=== PATIENT | female | born 1940 | race African-American/Black ===

== ENCOUNTER → 2016-11-22 | Outpatient (CLI) | payer MEDICARE ==
[2016-11-22 11:06] LABS: ABSOLUTE EOSINOPHILS # (AUTO) 0.1 10^3/uL (0.0-0.6); ABSOLUTE LYMPHOCYTES (AUTO) 1.5 10^3/uL (0.5-4.7); ABSOLUTE MONOCYTES (AUTO) 0.5 10^3/uL (0.1-1.4); ABSOLUTE NEUT (AUTO) 2.8 10^3/uL (1.7-8.2); BASOPHILS % (AUTO) 0.4 % (0-2); EOSINOPHILS % (AUTO) 1.2 % (0-6); HEMATOCRIT 36.7 % (36.0-47.0); HEMOGLOBIN 12.3 g/dL (12.0-15.5); HGB HCT DIFFERENCE 0.2; LYMPHOCYTES % (AUTO) 31.3 % (13-45); MEAN CORPUSCULAR HGB CONC 33.6 g/dL (32.0-36.0); MEAN CORPUSCULAR VOLUME 95 fl (80-97); MONOCYTES % (AUTO) 10.8 % (3-13); RED BLOOD COUNT 3.85 10^6/uL (3.72-5.28); RED CELL DISTRIBUTION WIDTH 14.6 % (11.5-14.0); SEGMENTED NEUTROPHILS % (AUTO) 56.3 % (42-78); WHITE BLOOD COUNT 4.9 10^3/uL (4.0-10.5)
[2016-11-22 11:26] LABS: ALANINE AMINOTRANSFERASE 28 U/L (9-52); ALBUMIN 4.2 g/dL (3.5-5.0); ALKALINE PHOSPHATASE 50 U/L (38-126); ANION GAP 12 (5-19); ASPARTATE AMINO TRANSFERASE 31 U/L (14-36); BILIRUBIN,DIRECT 0.1 mg/dL (0.0-0.4); BILIRUBIN,TOTAL 0.7 mg/dL (0.2-1.3); BLOOD UREA NITROGEN 13 mg/dL (7-20); CALCIUM 10.1 mg/dL (8.4-10.2); CARBON DIOXIDE 30 mmol/L (22-30); CHLORIDE 105 mmol/L (98-107); CHOLESTEROL 160.65 mg/dL (0-200); CREATININE RESULT 0.85 mg/dL (0.52-1.25); Direct HDL 53 mg/dL (>40); GLUCOSE 111 mg/dL (75-110); POTASSIUM 4.5 mmol/L (3.6-5.0); SODIUM 146.5 mmol/L (137-145); TOTAL PROTEIN 7.2 g/dL (6.3-8.2); TRIGLYCERIDES 72 mg/dL (<150)
[2016-11-22 11:37] LABS: DIRECT LDL 70 mg/dL (<100)
== END ==
LOC: OD 10:17
PROVIDERS: ATTEND Internal Medicine
DX: I10 Essential (primary) hypertension (principal); E78.5 Hyperlipidemia, unspecified; R53.82 Chronic fatigue, unspecified
CPT/HCPCS: 36415; 80053; 80061; 83735; 84443; 85025

== ENCOUNTER → 2016-11-30 | Outpatient (CLI) | payer MEDICARE | LOC: RAD 15:28 | PROVIDERS: ATTEND Internal Medicine | DX: D32.9 Benign neoplasm of meninges, unspecified (principal) | CPT/HCPCS: 70553; A9577 ==

== ENCOUNTER → 2016-12-08 | Outpatient (CLI) | payer MEDICARE | LOC: RAD 15:34 | PROVIDERS: ATTEND Internal Medicine | DX: R93.0 Abnormal findings on diagnostic imaging of skull and head, not elsewhere classified (principal) | CPT/HCPCS: 70544 ==

== ENCOUNTER 2017-05-02 13:05 | Emergency (ER) | payer MEDICARE ==
[2017-05-02] MEDS ORDERED: ASPIRIN 81 MG TABLET, CHEWABLE PO ONE (13:51)
--- NOTE | 2017-05-02 13:56 | ER Document Report ---
ED Medical Screen (RME) - General Chief Complaint: Chest Pain > 30 Stated Complaint: CHEST PAIN Time Seen by Provider: 05/02/17 13:51 Mode of Arrival: Wheelchair Information source: Patient Notes: 77 yr old female presents with complaints of chest tightness around the left to the right breast of 2-3 week duraiton with sob. I have greeted and performed a rapid initial assessment of this patient. A comprehensive ED assessment and evaluation of the patient, analysis of test results and completion of the medical decision making process will be conducted by additional ED providers. PHYSICAL EXAMINATION: GENERAL: Well-appearing, well-nourished and in no acute distress. HEAD: Atraumatic, normocephalic. EYES: Pupils equal round extraocular movements intact, conjunctiva are normal. ENT: Nares patent NECK: Normal range of motion LUNGS: No respiratory distress Musculoskeletal: Normal range of motion NEUROLOGICAL: Normal speech, normal gait. PSYCH: Normal mood, normal affect. SKIN: Warm, Dry, normal turgor, no rashes or lesions noted. TRAVEL OUTSIDE OF THE [place] IN LAST 30 DAYS: No - Related Data Allergies/Adverse Reactions: No Known Allergies Allergy (Verified 05/02/17 13:22) Past Medical History - Past Medical History Cardiac Medical History: Reports: Hx Hypertension Renal/ Medical History: Denies: Hx Peritoneal Dialysis Past Surgical History: Reports: Hx Hysterectomy, Hx Orthopedic Surgery - Right hip replacement. Left carpal tunnel surgery, Hx Tubal Ligation Physical Exam - Vital signs Vitals: Temp Pulse Resp BP Pulse Ox 98.6 F 95 18 155/90 H 97 05/02/17 13:25 05/02/17 13:25 05/02/17 13:25 05/02/17 13:25 05/02/17 13:25 Course - Vital Signs Vital signs: Temp Pulse Resp BP Pulse Ox 98.6 F 95 18 155/90 H 97 05/02/17 13:25 05/02/17 13:25 05/02/17 13:25 05/02/17 13:25 05/02/17 13:25
[2017-05-02] MEDS ORDERED: NITROGLYCERIN 2% OINTMENT 1 GM PACKET TP ONE (14:34)
--- NOTE | 2017-05-02 14:50 | ER Document Report ---
ED General - General Chief Complaint: Chest Pain > 30 Stated Complaint: CHEST PAIN Time Seen by Provider: 05/02/17 13:51 Mode of Arrival: Wheelchair TRAVEL OUTSIDE OF THE [place] IN LAST 30 DAYS: No - HPI Patient complains to provider of: Chest pain Notes: Patient coming in today for evaluation of chest pain. Patient states chest pain ongoing for approximately last 1-2 weeks left side goes to the right side of her chest patient states achy increases with movement and palpation however worse this morning. Pain is located underneath the left breast patient said coming to the ER for further evaluation. 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 Patient denies any fevers chills nausea vomiting cough denies any trauma recent travel. Patient denies any shortness of breath. Upon my evaluation patient is resting comfortably. Patient is currently on multiple antihypertensives - Related Data Allergies/Adverse Reactions: No Known Allergies Allergy (Verified 05/02/17 13:22) Past Medical History - General Information source: Patient - Social History Smoking Status: Never Smoker Frequency of alcohol use: None Drug Abuse: None Family History: Reviewed & Not Pertinent Patient has suicidal ideation: No - Past Medical History Cardiac Medical History: Reports: Hx Hypertension Renal/ Medical History: Denies: Hx Peritoneal Dialysis Past Surgical History: Reports: Hx Hysterectomy, Hx Orthopedic Surgery - Right hip replacement. Left carpal tunnel surgery, Hx Tubal Ligation Review of Systems - Review of Systems Constitutional: No symptoms reported EENT: No symptoms reported Cardiovascular: Chest pain Respiratory: No symptoms reported Gastrointestinal: No symptoms reported Genitourinary: No symptoms reported Female Genitourinary: No symptoms reported Musculoskeletal: No symptoms reported Skin: No symptoms reported Hematologic/Lymphatic: No symptoms reported Neurological/Psychological: No symptoms reported -: Yes All other systems reviewed and negative Physical Exam - Vital signs Vitals: Temp Pulse Resp BP Pulse Ox 98.6 F 95 18 155/90 H 97 05/02/17 13:25 05/02/17 13:25 05/02/17 13:25 05/02/17 13:25 05/02/17 13:25 Interpretation: Normal - General General appearance: Appears well, Alert - HEENT Head: Normocephalic, Atraumatic Eyes: Normal Pupils: PERRL - Respiratory Respiratory status: No respiratory distress Chest status: Tender - Tenderness to palpation of the lower ribs underneath the left breast. Breath sounds: Normal Chest palpation: Normal - Cardiovascular Rhythm: Regular Heart sounds: Normal auscultation Murmur: No - Abdominal Inspection: Normal Distension: No distension Bowel sounds: Normal Tenderness: Nontender Organomegaly: No organomegaly - Back Back: Normal, Nontender - Extremities General upper extremity: Normal inspection, Nontender, Normal color, Normal ROM , Normal temperature General lower extremity: Normal inspection, Nontender, Normal color, Normal ROM , Normal temperature, Normal weight bearing. No: Paddy's sign - Neurological Neuro grossly intact: Yes Cognition: Normal Orientation: AAOx4 Gurvinder Coma Scale Eye Opening: Spontaneous Gurvinder Coma Scale Verbal: Oriented [place] Coma Scale Motor: Obeys Commands Gurvinder Coma Scale Total: 15 Speech: Normal Motor strength normal: LUE, RUE, LLE, RLE Sensory: Normal - Psychological Associated symptoms: Normal affect, Normal mood - Skin Skin Temperature: Warm Skin Moisture: Dry Skin Color: Normal Course - Re-evaluation Re-evalutation: 05/02/17 14:49 Quick review of the patient's past medical history does show a history of AVN. EKG at this time does show signs of an atypical left bundle branch block by the computer more looks like a ventricular conduction delay QRS widening. Which is new for the patient. Last EKG that we have this in 2013. Patient at this time has atypical symptoms with reproducible pain to palpation. And concerned because of EKG changes will contact her PCP obtain lab work at this time do not think any further anticoagulation is going to be needed other than aspirin due to the patient's history of intracranial AVM 05/02/17 14:50 05/02/17 16:[address] Doherty which patient's PCP states last EKG did show ventricular conduction delay. Patient had a negative stress test in 2012 also discussed patient's case with Dr. Mena all physicians including myself were in agreement that after 2 negative troponins with longevity of pain and the typical characteristics no relief with nitro no relief with GI cocktail more likely more muscle skeletal to negative troponins will discharge home to follow- up with cardiology in the morning. 05/02/17 19:02 Second troponin returned negative will discharge home - Vital Signs Vital signs: Temp Pulse Resp BP Pulse Ox 98.6 F 95 18 150/78 H 93 05/02/17 13:25 05/02/17 13:25 05/02/17 18:41 05/02/17 18:41 05/02/17 18:41 - Laboratory Result Diagrams: 05/02/17 14:35 05/02/17 14:35 Laboratory results interpreted by me: 05/02/17 05/02/17 05/02/17 14:35 14:35 14:35 RBC 3.70 L Hct 35.5 L RDW 14.5 H Plt Count 140 L APTT 65.4 H Sodium 147.3 H Chloride 108 H Est GFR (Non-Af Amer) 53 L Creatine Kinase 212 H Discharge - Discharge Clinical Impression: Chest tightness Condition: Good Disposition: HOME, SELF-CARE Instructions: Anti-Inflammatory Medication ([facility]), Chest Wall Pain ([facility]), Chest Pain of Unclear Cause ([facility]) Additional Instructions: Your laboratory results did not show any signs of cardiac damage or signs of heart attack today. The rest of her labs are also normal. At this time your pain does not seem to be a cardiac issue lung issue or a GI issue. I did discuss with your burner hand recommends that he follow-up with him tomorrow please call his office for an appointment. Also follow-up with your primary care physician. Return to the ER for any concerning issues or worsening symptoms. Prescriptions: Tramadol HCl [Ultram 50 mg Tablet] 50 mg PO ASDIR PRN #20 tablet PRN Reason: Referrals: YANICK HARPER MD [Primary Care Provider] - Follow up as needed HERMAN HOOVER MD [ACTIVE STAFF] - Follow up tomorrow
[2017-05-02 14:52] LABS: ABSOLUTE LYMPHOCYTES (AUTO) 1.8 10^3/uL (0.5-4.7); ABSOLUTE MONOCYTES (AUTO) 0.7 10^3/uL (0.1-1.4); ABSOLUTE NEUT (AUTO) 3.4 10^3/uL (1.7-8.2); BASOPHILS % (AUTO) 0.5 % (0-2); EOSINOPHILS % (AUTO) 0.8 % (0-6); HEMATOCRIT 35.5 % (36.0-47.0); HEMOGLOBIN 12.4 g/dL (12.0-15.5); HGB HCT DIFFERENCE 1.7; MEAN CORPUSCULAR HEMOGLOBIN 33.4 pg (27.0-33.4); MEAN CORPUSCULAR HGB CONC 34.9 g/dL (32.0-36.0); MEAN CORPUSCULAR VOLUME 96 fl (80-97); MONOCYTES % (AUTO) 12.4 % (3-13); RED CELL DISTRIBUTION WIDTH 14.5 % (11.5-14.0); SEGMENTED NEUTROPHILS % (AUTO) 56.3 % (42-78)
[2017-05-02 15:04] LABS: PARTIAL THROMBOPLASTIN TIME 65.4 SEC (23.5-35.8)
--- NOTE | 2017-05-02 15:04 | RADIOLOGY REPORT (SQ) ---
EXAM DESCRIPTION: CHEST SINGLE VIEW COMPLETED DATE/TIME: 05/02/2017 2:57 pm REASON FOR STUDY: chest pain COMPARISON: None. EXAM PARAMETERS: NUMBER OF VIEWS: One view. TECHNIQUE: Single frontal radiographic view of the chest acquired. RADIATION DOSE: NA LIMITATIONS: None. FINDINGS: LUNGS AND PLEURA: No opacities, masses or pneumothorax. No pleural effusion. MEDIASTINUM AND HILAR STRUCTURES: No masses. Contour normal. HEART AND VASCULAR STRUCTURES: Heart normal in size. Normal vasculature. BONES: No acute findings. Degenerative changes in the spine. HARDWARE: None in the chest. OTHER: No other significant finding. IMPRESSION: NO ACUTE RADIOGRAPHIC FINDING IN THE CHEST. TECHNICAL DOCUMENTATION: JOB ID: [id number]
[2017-05-02 15:20] LABS: ALANINE AMINOTRANSFERASE 28 U/L (9-52); ALBUMIN 4.2 g/dL (3.5-5.0); ALKALINE PHOSPHATASE 62 U/L (38-126); ANION GAP 11 (5-19); ASPARTATE AMINO TRANSFERASE 31 U/L (14-36); BILIRUBIN,DIRECT 0.3 mg/dL (0.0-0.4); BILIRUBIN,TOTAL 0.5 mg/dL (0.2-1.3); BLOOD UREA NITROGEN 15 mg/dL (7-20); CALCIUM 9.8 mg/dL (8.4-10.2); CARBON DIOXIDE 28 mmol/L (22-30); CHLORIDE 108 mmol/L (98-107); CREATINE KINASE 212 U/L (30-135); GLUCOSE 95 mg/dL (75-110); LIPASE 142.2 U/L (23-300); MAGNESIUM 2.2 mg/dL (1.6-2.3); POTASSIUM 3.8 mmol/L (3.6-5.0); SODIUM 147.3 mmol/L (137-145); TOTAL PROTEIN 7.5 g/dL (6.3-8.2)
[2017-05-02 15:36] LABS: CREATINE KINASE MB 1.84 ng/mL (<4.55)
[2017-05-02 15:37] LABS: TROPONIN I < 0.012 ng/mL
[2017-05-02] MEDS ORDERED: LIDOCAINE 2% VISCOUS SOLN 20 ML UDCUP PO ONE (15:48)
[2017-05-02] MEDS ORDERED: METOCLOPRAMIDE HCL ORAL SOLN 10 MG/10 ML UDCUP PO ONE (15:48)
[2017-05-02] MEDS ORDERED: MAG HYDROX/AL HYDROX/SIMETH SUSP 30 ML UDCUP PO ONE (15:48)
[2017-05-02] MEDS ORDERED: TRAMADOL HCL 50 MG TABLET PO ONE (16:13)
[2017-05-02 18:45] VITALS: BP 150/78
--- NOTE | 2017-05-02 19:25 | EKG REPORT ---
SEVERITY:- ABNORMAL ECG - SINUS RHYTHM IVCD, CONSIDER ATYPICAL LBBB : Confirmed by: Phong Oviedo MD 02-May-2017 19:24:53
== END 2017-05-02 18:56 | disposition home or self-care (01) ==
LOC: ER 13:05
DX: R07.89 Other chest pain (principal); Q28.2 Arteriovenous malformation of cerebral vessels; I10 Essential (primary) hypertension; Z79.899 Other long term (current) drug therapy; Z86.73 Personal history of transient ischemic attack (TIA), and cerebral infarction without residual deficits
CPT/HCPCS: 93005; 99285; 36415; 82553; 82550; 83690; 83735; 85025; 85610; 85730; 80053; 84484; 71010; 93010; A9270 ×4; J3490

== ENCOUNTER → 2017-05-26 | Outpatient (CLI) | payer MEDICARE ==
--- NOTE | 2017-05-26 15:57 | RADIOLOGY REPORT (SQ) ---
EXAM DESCRIPTION: KUB/ABDOMEN (SINGLE VIEW) COMPLETED DATE/TIME: 05/26/2017 2:51 pm REASON FOR STUDY: EPIGASTRIC PAIN, CONSTIPATION R10.13 EPIGASTRIC PAIN K59.01 SLOW TRANSIT CONSTIP ATION COMPARISON: None. NUMBER OF VIEWS: One view. TECHNIQUE: Supine radiographic image of the abdomen acquired. LIMITATIONS: None. FINDINGS: BOWEL GAS PATTERN: Normal bowel gas pattern. No dilated loops. CALCIFICATIONS: No suspicious calcifications. SOFT TISSUES: No gross mass or suggestion of organomegaly. HARDWARE: None in the abdomen. BONES: No acute fracture. No worrisome bone lesions. OTHER: No other significant finding. IMPRESSION: NO RADIOGRAPHIC EVIDENCE FOR ACUTE ABDOMINAL DISEASE. TECHNICAL DOCUMENTATION: JOB ID: [id number] [employer]- All Rights Reserved
== END ==
LOC: RAD 14:37
PROVIDERS: ATTEND Internal Medicine Gastroenterology
DX: K59.01 Slow transit constipation (principal); R10.13 Epigastric pain
CPT/HCPCS: 74000

== ENCOUNTER → 2018-03-10 | Outpatient (CLI) | payer MEDICARE ==
--- NOTE | 2018-03-11 08:59 | RADIOLOGY REPORT (SQ) ---
EXAM DESCRIPTION: MRI HEAD COMBO COMPLETED DATE/TIME: 03/10/2018 5:42 pm REASON FOR STUDY: BENIGN NEOPLASM OF MENINGES, UNSPECIFIED D32.9 BENIGN NEOPLASM OF MENINGES, UNSPE CIFIED COMPARISON: 2014. TECHNIQUE: Multiplanar imaging includes noncontrasted T1, T2, FLAIR, diffusion with ADC map and post gadolinium contrast T1 sequences. Images stored on PACS. CONTRAST TYPE AND DOSE: 20 mL Prohance. RENAL FUNCTION: GFR > 60. LIMITATIONS: None. FINDINGS: ANATOMY: No anomalies. Normal vascular flow voids. Pituitary fossa normal. CSF SPACES: Normal in size and contour. No hemorrhage. CEREBRUM: Mild spotty FLAIR/ T2 hyperintense lesions in the white matter. Consistent with small vess el vasculopathy. No intraparenchymal enhancing lesions. Subcentimeter dural-based left parietal tin y enhancing mass is perhaps best demonstrated on the sagittal postcontrast images. This lesion measu res up to almost 8 mm. Similar appearance to prior. POSTERIOR FOSSA: A faint enhancing area in the upper aspect of the right cerebellum is nonprogressive . Regional small flow voids, likely AVM. No regional edema or other posterior fossa abnormality. DIFFUSION IMAGING: Negative for acute or subacute infarction. ORBITS: No masses. Globes normal. PARANASAL SINUSES: No fluid levels. Mucosa normal. OTHER: No other significant finding. IMPRESSION: 1. Stable appearance of the brain. This includes mild small vessel disease and a tiny left high parietal meningioma. 2. Faint area of contrast enhancement with flow voids in the right he mi cerebellum also once again noted in nonprogressive. Likely a stable AVM. EVIDENCE OF ACUTE STROKE: NO. TECHNICAL DOCUMENTATION: JOB ID: [id number] [employer]- All Rights Reserved Reading location - IP/workstation name: [email or web address]
== END ==
LOC: RAD 15:54
PROVIDERS: ATTEND Family Medicine
DX: D32.9 Benign neoplasm of meninges, unspecified (principal)
CPT/HCPCS: 36415; 82565; 70553; A9576

== ENCOUNTER 2018-06-07 17:26 | Emergency (ER) | payer MEDICARE ==
--- NOTE | 2018-06-07 17:54 | ER Document Report ---
ED Medical Screen (RME) - General Chief Complaint: Chest Pain Stated Complaint: CHEST PAIN Notes: Patient was in [email or web address] shopping when she felt dizzy and felt she might pass out. She leaned on the shopping cart to keep from falling. A few minutes later , she noted some chest pains. Patient drove to a friend's house who called EMS to transport her here. EMS found her heart rate to be 38. They gave her a milligram of atropine but no relief of symptoms. Patient says she is no longer feeling dizzy or lightheaded or chest pains at this time. Has never had any heart trouble. She does have severe hypertension for which she is on amlodipine 10 mg daily and metoprolol 200 mg daily and hydrochlorothiazide 25 mg daily. Also on a statin for high cholesterol. Patient's EKG shows complete heart block with a heart rate of 37. PMD: Remigio TRAVEL OUTSIDE OF THE [place] IN LAST 30 DAYS: No - Related Data Allergies/Adverse Reactions: No Known Allergies Allergy (Verified 05/02/17 13:22) Past Medical History - Past Medical History Cardiac Medical History: Reports: Hx Hypertension Renal/ Medical History: Denies: Hx Peritoneal Dialysis Past Surgical History: Reports: Hx Hysterectomy, Hx Orthopedic Surgery - Right hip replacement. Left carpal tunnel surgery, Hx Tubal Ligation Course - Laboratory Result Diagrams: 06/07/18 17:37 06/07/18 17:37 Doctor's Discharge - Discharge Referrals: MANDEEP BENJAMIN MD [Primary Care Provider] - Follow up as needed
[2018-06-07 17:57] LABS: ABSOLUTE EOSINOPHILS # (AUTO) 0.1 10^3/uL (0.0-0.6); ABSOLUTE LYMPHOCYTES (AUTO) 1.8 10^3/uL (0.5-4.7); ABSOLUTE MONOCYTES (AUTO) 0.5 10^3/uL (0.1-1.4); ABSOLUTE NEUT (AUTO) 2.7 10^3/uL (1.7-8.2); BASOPHILS % (AUTO) 0.3 % (0-2); EOSINOPHILS % (AUTO) 1.2 % (0-6); HEMATOCRIT 35.4 % (36.0-47.0); MEAN CORPUSCULAR HEMOGLOBIN 33.2 pg (27.0-33.4); MEAN CORPUSCULAR HGB CONC 33.9 g/dL (32.0-36.0); MEAN CORPUSCULAR VOLUME 98 fl (80-97); PLATELET COUNT 139 10^3/uL (150-450); RED BLOOD COUNT 3.61 10^6/uL (3.72-5.28); RED CELL DISTRIBUTION WIDTH 15.5 % (11.5-14.0); SEGMENTED NEUTROPHILS % (AUTO) 53.5 % (42-78); TOTAL CELLS COUNTED % (AUTO) 100 %
--- NOTE | 2018-06-07 18:13 | ER Document Report ---
ED General - General Chief Complaint: Chest Pain Stated Complaint: CHEST PAIN Time Seen by Provider: 06/07/18 18:01 Mode of Arrival: Medic Information source: Patient, Emergency Med Personnel Notes: This is an 78-year-old woman with a history of hypertension brought in by EMS after a near syncopal episode while shopping at [employer]. Patient states she awoke usual state of health and later in the day decided to go out to buy some food. She [facility], she started to feel like she was going to faint and put her head down on the cart. She did state that after feeling dizzy, she did experience some chest heaviness. She went to check out and was helped to her car and she drove to her sister's house. Her sister called the EMS. EMS noted patient to be bradycardic. Currently, patient is lying in the stretcher in no distress. She denies chest pain at this time. She denies dizziness at this time. TRAVEL OUTSIDE OF THE [place] IN LAST 30 DAYS: No - HPI Onset: Just prior to arrival Onset/Duration: Sudden Quality of pain: Dull Severity: Moderate Pain Level: 2 Associated symptoms: Chest pain, Nausea, Other - Near syncope. denies: Fever, Shortness of breath Exacerbated by: Denies Relieved by: Denies Similar symptoms previously: No Recently seen / treated by doctor: No - Related Data Allergies/Adverse Reactions: No Known Allergies Allergy (Verified 05/02/17 13:22) Past Medical History - General Information source: Patient - Social History Smoking Status: Never Smoker Cigarette use (# per day): No Chew tobacco use (# tins/day): No Frequency of alcohol use: None Drug Abuse: None Lives with: Alone Family History: Reviewed & Not Pertinent Patient has suicidal ideation: No Patient has homicidal ideation: No - Past Medical History Cardiac Medical History: Reports: Hx Hypertension Pulmonary Medical History: Reports: None EENT Medical History: Reports: None Neurological Medical History: Reports: None Endocrine Medical History: Reports: None Renal/ Medical History: Reports: None. Denies: Hx Peritoneal Dialysis Malignancy Medical History: Reports: None GI Medical History: Reports: None Musculoskeletal Medical History: Reports None Psychiatric Medical History: Reports: None Traumatic Medical History: Reports: None Infectious Medical History: Reports: None Past Surgical History: Reports: Hx Hysterectomy, Hx Orthopedic Surgery - Right hip replacement. Left carpal tunnel surgery, Hx Tubal Ligation Review of Systems - Review of Systems Constitutional: denies: Chills, Fever EENT: No symptoms reported Cardiovascular: See HPI Respiratory: No symptoms reported Gastrointestinal: No symptoms reported Genitourinary: No symptoms reported Female Genitourinary: No symptoms reported Musculoskeletal: No symptoms reported Skin: No symptoms reported Hematologic/Lymphatic: No symptoms reported Neurological/Psychological: No symptoms reported Physical Exam - Vital signs Vitals: Resp Pulse Ox 11 L 95 06/07/18 17:29 06/07/18 17:29 Notes: Physical exam: GENERAL: Patient is alert and oriented x3, no acute distress. Patient denies chest pain, shortness of breath, dizziness. Blood pressure is 147/70 with a pulse of 38. Patient's O2 sat is 98% on room air and her respiratory rate is 16. HEAD: Atraumatic, normocephalic. EYES: Pupils equal round and reactive to light, extraocular movements intact, sclera anicteric, conjunctiva are normal. ENT: TMs normal, nares patent, oropharynx clear without exudates. Moist mucous membranes. NECK: Normal range of motion, supple without obvious mass or JVD. LUNGS: Breath sounds clear to auscultation bilaterally and equal. No wheezes rales or rhonchi. HEART: Slow rate without murmurs, rubs or gallops. ABDOMEN: Soft, normoactive bowel sounds. No tenderness to palpation. No guarding, no rebound. No masses appreciated. EXTREMITIES: Normal range of motion, no pitting or edema. No clubbing or cyanosis. NEUROLOGICAL: Cranial nerves II through XII grossly intact. Normal speech, moving all extremities. PSYCH: Normal mood, normal affect. SKIN: Warm, Dry, normal turgor, no rashes or lesions noted. Course - Re-evaluation Re-evalutation: 06/07/18 19:[address] Lindsay at [facility]. Patient did have some recurrent dizziness with a heart rate going into the 33 range. The plan will be to continue with atropine as needed, Lovenox, glucagon and low-dose IV dopamine if needed. Patient did take 81 mg x4 of aspirin just prior to arrival in the ER. 06/07/18 20:52 Patient was titrated up to 4mg/kg/min. she did have some nausea after the glucagon and was given Zofran and Pepcid. I was at the bedside, she did appear to convert to sinus rhythm with a ventricular rate of 97. The dopamine was stopped at that point. Transport is here. - Vital Signs Vital signs: Temp Pulse Resp BP Pulse Ox 13 169/86 H 99 06/07/18 20:46 06/07/18 20:46 06/07/18 20:46 - Laboratory Result Diagrams: 06/07/18 17:37 06/07/18 17:37 Laboratory results interpreted by me: 06/07/18 06/07/18 17:37 17:37 RBC 3.61 L Hct 35.4 L MCV 98 H RDW 15.5 H Plt Count 139 L Sodium 145.7 H Est GFR (Non-Af Amer) 52 L Glucose 120 H AST 75 H Creatine Kinase 208 H - Diagnostic Test Radiology reviewed: Image reviewed, Reports reviewed - Chest x-ray shows cardiomegaly with out infiltrates or obvious pulmonary edema - EKG Interpretation by Me Rate: Bradycardia - EKG shows complete heart block with a ventricular rate of 37 , there is deep T wave inversions V1 through V4 is no ST elevation Critical Care Note - Critical Care Note Total time excluding time spent on procedures (mins): 90 Discharge - Discharge Clinical Impression: Complete heart block Condition: Serious Disposition: [facility] Referrals: MANDEEP BENJAMIN MD [Primary Care Provider] - Follow up as needed
[2018-06-07 18:19] LABS: ALANINE AMINOTRANSFERASE 50 U/L (9-52); ALBUMIN 4.1 g/dL (3.5-5.0); ALKALINE PHOSPHATASE 54 U/L (38-126); ANION GAP 13 (5-19); ASPARTATE AMINO TRANSFERASE 75 U/L (14-36); BILIRUBIN,DIRECT 0.1 mg/dL (0.0-0.4); BILIRUBIN,TOTAL 0.4 mg/dL (0.2-1.3); BLOOD UREA NITROGEN 14 mg/dL (7-20); CALCIUM 10.2 mg/dL (8.4-10.2); CARBON DIOXIDE 27 mmol/L (22-30); CHLORIDE 106 mmol/L (98-107); CREATINE KINASE 208 U/L (30-135); GLUCOSE 120 mg/dL (75-110); POTASSIUM 3.7 mmol/L (3.6-5.0); SODIUM 145.7 mmol/L (137-145); TOTAL PROTEIN 7.5 g/dL (6.3-8.2)
--- NOTE | 2018-06-07 18:26 | RADIOLOGY REPORT (SQ) ---
EXAM DESCRIPTION: CHEST SINGLE VIEW COMPLETED DATE/TIME: 06/07/2018 6:11 pm REASON FOR STUDY: t1 cp/dizzy COMPARISON: 05/02/2017 EXAM PARAMETERS: NUMBER OF VIEWS: One view. TECHNIQUE: Single frontal radiographic view of the chest acquired. RADIATION DOSE: NA LIMITATIONS: Low lung volumes. FINDINGS: LUNGS AND PLEURA: No opacities, masses or pneumothorax. No pleural effusion. MEDIASTINUM AND HILAR STRUCTURES: No masses. Contour normal. HEART AND VASCULAR STRUCTURES: Heart normal in size. Normal vasculature. BONES: No acute findings. HARDWARE: None in the chest. OTHER: No other significant finding. IMPRESSION: Negative chest allowing for low lung volumes. TECHNICAL DOCUMENTATION: JOB ID: [id number] [employer]- All Rights Reserved Reading location - IP/workstation name: [email or web address]
[2018-06-07 18:31] LABS: CREATINE KINASE MB 2.36 ng/mL (<4.55)
[2018-06-07 18:36] LABS: TROPONIN I < 0.012 ng/mL
[2018-06-07] MEDS ORDERED: ASPIRIN 81 MG TABLET, CHEWABLE ONE (19:21)
[2018-06-07] MEDS ORDERED: ATROPINE SULFATE INJ 1 MG/1 ML VIAL ONE (19:22)
[2018-06-07] MEDS ORDERED: ENOXAPARIN SODIUM INJ 100 MG/1 ML DISP.SYRIN SUBCUT ONE (19:32)
[2018-06-07] MEDS ORDERED: ATROPINE SULFATE INJ 1 MG/10 ML DISP.SYRIN IV ONE (19:33)
[2018-06-07] MEDS ORDERED: GLUCAGON,HUMAN RECOMB 1 MG INJ IV ONE (19:34)
[2018-06-07] MEDS: ENOXAPARIN SODIUM INJ 100 MG/1 ML DISP.SYRIN SUBCUT ONE ×2 (19:43→19:46)
[2018-06-07] MEDS ORDERED: ONDANSETRON HCL INJ/PF 4 MG/2 ML SDV ONE ×2 (19:46→20:27)
[2018-06-07] MEDS ORDERED: ONDANSETRON HCL INJ/PF 4 MG/2 ML SDV IV ONE ×2 (19:48→20:27)
[2018-06-07] MEDS ORDERED: DOPAMINE HCL/DEXTROSE 5%-WATER 800 MG/250 ML RTUINJ IV ONE (19:57)
[2018-06-07] MEDS ORDERED: FAMOTIDINE INJ/PF 20 MG/2 ML SDV IV ONE (20:27)
[2018-06-07 21:08] VITALS: BP 169/86
--- NOTE | 2018-06-07 22:39 | EKG REPORT ---
SEVERITY:- ABNORMAL ECG - COMPLETE AV BLOCK WITH WIDE QRS COMPLEX : Confirmed by: Bonnie Ware 07-Jun-2018 22:39:25
--- NOTE | 2018-06-07 22:39 | EKG REPORT ---
SEVERITY:- ABNORMAL ECG - COMPLETE AV BLOCK WITH WIDE QRS COMPLEX : Confirmed by: Bonnie Ware 07-Jun-2018 22:39:14
== END 2018-06-07 21:00 | disposition short-term general hospital (02) ==
LOC: ER 17:26
DX: I44.2 Atrioventricular block, complete (principal); R07.9 Chest pain, unspecified; I10 Essential (primary) hypertension; R55 Syncope and collapse; R42 Dizziness and giddiness; R11.0 Nausea
CPT/HCPCS: 93005; 96376; 99291; 99292; 96372; 96375; 96365; 36415; 82553; 82550; 85025; 80053; 84484; 71045; 93010; J0461; J1265; J1610; J2405; J1650; S0028

== ENCOUNTER → 2018-09-22 | Outpatient (CLI) | payer MEDICARE ==
[2018-09-22 11:29] LABS: ANION GAP 8 (5-19); BLOOD UREA NITROGEN 16 mg/dL (7-20); CALCIUM 9.9 mg/dL (8.4-10.2); CARBON DIOXIDE 32 mmol/L (22-30); CHLORIDE 105 mmol/L (98-107); CHOLESTEROL 160.14 mg/dL (0-200); GLUCOSE 110 mg/dL (75-110); SODIUM 145.3 mmol/L (137-145); TRIGLYCERIDES 77 mg/dL (<150)
[2018-09-22 11:41] LABS: DIRECT LDL 80 mg/dL (<100)
== END ==
LOC: OD 09:57
PROVIDERS: ATTEND Family Medicine
DX: E78.2 Mixed hyperlipidemia (principal); I10 Essential (primary) hypertension; G62.9 Polyneuropathy, unspecified; Z79.899 Other long term (current) drug therapy
CPT/HCPCS: 36415; 80048; 80061; 83036; 84443

== ENCOUNTER 2019-10-08 11:35 | Emergency (ER) | payer MEDICARE ==
--- NOTE | 2019-10-08 12:24 | ER Document Report ---
ED Medical Screen (RME) - General Chief Complaint: Leg Pain Stated Complaint: LEG PAIN Time Seen by Provider: 10/08/19 12:17 Primary Care Provider: MANDEEP BENJAMIN MD [Primary Care Provider] - Follow up as needed TRAVEL OUTSIDE OF THE [place] IN LAST 30 DAYS: No - HPI Notes: 10/08/19 12:22 Patient is an 79-year-old female with history of hypertension and "poor circulation" who presents complaining of left calf pain/left lower leg pain that is been ongoing for the past month primarily when she is ambulating. Patient states that she did injure her leg at that time. Denies drug allergies. She has not noticed any bruising or swelling otherwise. No fever, chest pain, shortness of breath. She is not on any blood thinning medications. No history of DVT. I did call and Doppler tech and I would like them to obtain a venous Doppler, but spotcheck the arteries and if poor flow to perform an arterial Doppler as well. I have treated and performed a rapid initial assessment of this patient. A comprehensive ED assessment and evaluation of the patient, analysis of test results and completion of medical decision making process will be conducted by additional ED providers. PHYSICAL EXAMINATION: GENERAL: Well-appearing, well-nourished and in no acute distress. A&Ox4. Answers questions appropriately. Left leg: There is tenderness to the medial proximal calf to palpation. Unable to adequately palpate pulses, but the foot is warm with capillary refill less than 3 seconds. - Related Data Allergies/Adverse Reactions: No Known Allergies Allergy (Verified 05/02/17 13:22) Past Medical History - Social History Frequency of alcohol use: None - Past Medical History Cardiac Medical History: Reports: Hx Hypertension Renal/ Medical History: Denies: Hx Peritoneal Dialysis Past Surgical History: Reports: Hx Hysterectomy, Hx Orthopedic Surgery - Right hip replacement. Left carpal tunnel surgery, Hx Tubal Ligation Physical Exam - Vital signs Vitals: Temp Pulse Resp BP Pulse Ox 98.0 F 93 19 132/66 H 96 10/08/19 12:13 10/08/19 12:13 10/08/19 12:13 10/08/19 12:13 10/08/19 12:13 Course - Vital Signs Vital signs: Temp Pulse Resp BP Pulse Ox 98.0 F 93 19 132/66 H 96 10/08/19 12:13 10/08/19 12:13 10/08/19 12:13 10/08/19 12:13 10/08/19 12:13 Doctor's Discharge - Discharge Referrals: MANDEEP BENJAMIN MD [Primary Care Provider] - Follow up as needed
--- NOTE | 2019-10-08 13:29 | RADIOLOGY REPORT (SQ) ---
EXAM DESCRIPTION: TIBIA FIBULA LEFT COMPLETED DATE/TIME: 10/08/2019 1:04 pm REASON FOR STUDY: prox lower leg pain COMPARISON: None. NUMBER OF VIEWS: Two views. TECHNIQUE: Two radiographic images acquired of the left tibia and fibula to include the knee and ank le in at least one projection. LIMITATIONS: None. FINDINGS: MINERALIZATION: Normal. BONES: No acute fracture or dislocation. No periosteal reaction or osseous lesion. SOFT TISSUES: Vascular calcifications. OTHER: Enthesophytes at the calcaneal insertions of the plantar fascia and Achilles tendon. IMPRESSION: No acute osseous abnormality of the left tibia and fibula. TECHNICAL DOCUMENTATION: JOB ID: [id number] [employer]- All Rights Reserved Reading location - IP/workstation name: [email or web address]
--- NOTE | 2019-10-08 17:12 | RADIOLOGY REPORT (SQ) ---
EXAM DESCRIPTION: VENOUS UNILATERAL LOWER COMPLETED DATE/TIME: 10/08/2019 4:42 pm REASON FOR STUDY: Left calf pain, please spot check arteries COMPARISON: None. TECHNIQUE: Dynamic and static uriostegui scale and color images acquired of the left leg venous system. Se lected spectral images acquired with additional compression and augmentation maneuvers. The contralat eral common femoral vein and saphenofemoral junction were also imaged. Images stored on PACS. LIMITATIONS: None. FINDINGS: COMMON FEMORAL: Normal phasicity, compression and augmentation. No visualized echogenic ma terial on uriostegui scale. No defects on color images. FEMORAL: Normal compression and augmentation. No visualized echogenic material on uriostegui scale. No defe cts on color images. POPLITEAL: Normal compression, augmentation. No visualized echogenic material on uriostegui scale. No defec ts on color images. CALF VESSELS: Normal compression, augmentation. No visualized echogenic material on uriostegui scale. No de fects on color images. Peroneal veins are not seen. GSV and SSV: Normal compression, augmentation. No visualized echogenic material on uriostegui scale. No def ects on color images. ANY DEEP VENOUS INSUFFICIENCY: Not evaluated. ANY EVIDENCE OF POPLITEAL CYST: No. OTHER: No other significant finding. CONTRALATERAL COMMON FEMORAL VEIN AND SAPHENOFEMORAL JUNCTION: Normal phasicity, compression and augmentation. No visualized echogenic material on uriostegui scale. No de fects on color images. IMPRESSION: NO EVIDENCE DVT OR SVT IN THE LEFT LEG. TECHNICAL DOCUMENTATION: JOB ID: [id number] [employer]- All Rights Reserved Reading location - IP/workstation name: [email or web address]
--- NOTE | 2019-10-08 17:23 | ER Document Report ---
HPI - HPI Patient complains to provider of: left lower leg pain Time Seen by Provider: 10/08/19 12:17 Onset: Last week Onset/Duration: Sudden, Persistent Quality of pain: Achy Pain Level: 3 Context: 79-year-old female presents emergency department with complaints of left lower leg pain. Reports it started last week. Denies trauma. Denies history of PEs or DVTs. Denies recent trip. Reports she just went to [place] and she noticed it hurting. Reports it hurt so bad she has trouble walking anymore. Denies fever vomiting diarrhea. Reports she has been taking ibuprofen without relief of symptoms. Associated Symptoms: None Exacerbated by: Walking Relieved by: Denies Similar symptoms previously: No Recently seen / treated by doctor: No - REPRODUCTIVE Reproductive: DENIES: : Past Medical History - General Information source: Patient - Social History Smoking Status: Never Smoker Frequency of alcohol use: None Lives with: Family Family History: Reviewed & Not Pertinent Patient has suicidal ideation: No Patient has homicidal ideation: No - Past Medical History Cardiac Medical History: Reports: Hx Hypertension Pulmonary Medical History: Reports: Hx Bronchitis Renal/ Medical History: Denies: Hx Peritoneal Dialysis Past Surgical History: Reports: Hx Hysterectomy, Hx Oral Surgery, Hx Orthopedic Surgery - Right hip replacement. Left carpal tunnel surgery, Hx Tubal Ligation Vertical Provider Document - CONSTITUTIONAL Agree With Documented VS: Yes Exam Limitations: No Limitations General Appearance: WD/WN, No Apparent Distress - INFECTION CONTROL TRAVEL OUTSIDE OF THE [place] IN LAST 30 DAYS: No - HEENT HEENT: Atraumatic, Normocephalic - NECK Neck: Supple - RESPIRATORY Respiratory: No Respiratory Distress - CARDIOVASCULAR Cardiovascular: Regular Rate - MUSCULOSKELETAL/EXTREMETIES Musculoskeletal/Extremeties: MAEW, FROM, Tender - Patient reports left lower leg tender to palpate calf pain. No obvious deformity no erythema swelling or warmth. Pedal pulse, cap refill normal for age. - NEURO Level of Consciousness: Awake, Alert, Appropriate Motor/Sensory: No Motor Deficit - DERM Integumentary: Warm, Dry Adult Front & Back Diagram: 1 - Patient complains of pain Course - Re-evaluation Re-evalutation: 10/08/19 17:30 Patient presents emergency department with complaints of left lower leg pain. No injury. No history of DVT or PE. She reports no recent long walks no change in shoes. X-ray and venous Doppler negative for injury or DVT. Patient was instructed on this. Instructed on monitoring leg follow-up with her primary care provider Dr. Flood within 1 week. She verbalized understanding. She was offered Motrin but declined. Reports it does not help. Venous Doppler Study 10/08/19 12:21 IMPRESSION: NO EVIDENCE DVT OR SVT IN THE LEFT LEG. Tibia/Fibula X-Ray 10/08/19 12:22 IMPRESSION: No acute osseous abnormality of the left tibia and fibula. - Vital Signs Vital signs: Temp Pulse Resp BP Pulse Ox 98.0 F 93 19 132/66 H 96 10/08/19 12:13 10/08/19 12:13 10/08/19 12:13 10/08/19 12:13 10/08/19 12:13 - Diagnostic Test Radiology reviewed: Image reviewed, Reports reviewed Discharge - Discharge Clinical Impression: Pain of left lower extremity Condition: Stable Disposition: HOME, SELF-CARE Additional Instructions: *You have been evaluated for left lower leg pain *Your x-ray and Doppler does not show any acute injury *Rest/Elevate your lower leg *Follow up with your primary care provider within 1 week for recheck *Take ibuprofen as indicated for pain *Return to ED for worsening condition, changes, needs Forms: Elevated Blood Pressure Referrals: MANDEEP FLOOD MD [Primary Care Provider] - Follow up in 1 week
[2019-10-08 17:37] VITALS: BP 175/107
== END 2019-10-08 17:34 | disposition home or self-care (01) ==
LOC: ER 11:35
DX: M79.605 Pain in left leg (principal); I10 Essential (primary) hypertension
CPT/HCPCS: 93971; 99284

== ENCOUNTER → 2019-10-08 | Outpatient (CLI) | payer MEDICARE ==
[2019-10-08 11:37] LABS: ANION GAP 7 (5-19); BLOOD UREA NITROGEN 12 mg/dL (7-20); CALCIUM 9.3 mg/dL (8.4-10.2); CARBON DIOXIDE 29 mmol/L (22-30); CHLORIDE 107 mmol/L (98-107); CHOLESTEROL 219.47 mg/dL (0-200); GLUCOSE 100 mg/dL (75-110); POTASSIUM 3.9 mmol/L (3.6-5.0); TRIGLYCERIDES 93 mg/dL (<150)
[2019-10-08 11:47] LABS: DIRECT LDL 129 mg/dL (<100)
== END ==
LOC: OD 10:11
PROVIDERS: ATTEND Family Medicine
DX: E78.2 Mixed hyperlipidemia (principal); I10 Essential (primary) hypertension; G62.9 Polyneuropathy, unspecified; Z79.899 Other long term (current) drug therapy
CPT/HCPCS: 36415; 80048; 80061; 83036; 84443